=== PATIENT | female | born 1995 | race African-American/Black ===

== ENCOUNTER 2016-06-10 18:52 | Emergency (ER) | payer OTHER ==
[2016-06-10] MEDS ORDERED: ACETAMINOPHEN 325 MG TAB As Ordered ONE (21:11)
[2016-06-10 21:21] LABS: BASO % 0.5 % (0.0-1.0); EOS # 0.2 K/mm3 (0.0-0.50); EOS % 1.6 % (0.0-3.0); LARGE UNSTAINED CELL # 0.2 K/mm3 (0.0-0.4); LYMPH # 2.2 K/mm3 (1.5-6.5); LYMPH % 23.4 % (24.0-44.0); MEAN CORPUSCULAR HEMOGLOBIN 31.7 pg (27.0-33.0); MEAN CORPUSCULAR HGB CONC 33.7 g/dl (32.0-36.5); MEAN CORPUSCULAR VOLUME 93.9 fl (80.0-96.0); MONO # 0.4 K/mm3 (0.0-0.8); MONO % 4.6 % (0.0-5.0); NEUTROPHILS # 6.4 K/mm3 (1.8-7.7); PLATELET COUNT, AUTOMATED 181 k/mm3 (150-450); RED CELL DISTRIBUTION WIDTH 11.5 % (11.5-14.5); WHITE BLOOD COUNT 9.4 K/mm3 (4.0-10.0)
[2016-06-10 21:47] LABS: ALBUMIN 3.8 GM/DL (3.2-5.2); ALBUMIN/GLOBULIN RATIO 0.95 (1.00-1.93); ALKALINE PHOSPHATASE 87 U/L (45-117); ALT/SGPT 20 U/L (12-78); ANION GAP 9 MEQ/L (8-16); AST/SGOT 19 U/L (15-37); BILIRUBIN,DIRECT < 0.1 MG/DL (0.0-0.2); BILIRUBIN,TOTAL 0.4 MG/DL (0.2-1.0); BLOOD UREA NITROGEN 8 MG/DL (7-18); CALCIUM LEVEL 9.1 MG/DL (8.5-10.1); CARBON DIOXIDE LEVEL 26 MEQ/L (21-32); CHLORIDE LEVEL 105 MEQ/L (98-107); CREATININE FOR GFR 0.88 MG/DL (0.55-1.02); GLOMERULAR FILTRATION RATE > 60.0 (>60); GLUCOSE, FASTING 90 MG/DL (70-105); SODIUM LEVEL 140 MEQ/L (136-145); TOTAL PROTEIN 7.8 GM/DL (6.4-8.2)
[2016-06-10] MEDS ORDERED: ISOVUE-370 76% 100ML VIAL (Q9967) As Ordered ONE (22:00)
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
--- NOTE | 2016-06-10 23:00 | REPUSA ---
CLINICAL STATEMENT: Trauma TECHNIQUE: CT chest abdomen pelvis was performed after intravenous contrast administration. Post imag ing 3-D technique employed to obtain multiplanar reformats in coronal and sagittal projections. COMPARISON: None FINDINGS: CHEST: LOWER NECK: The visualized portions of the thyroid gland are unremarkable. No lower cervical lymphade nopathy is identified. LYMPH NODES: No axillary, mediastinal or hilar lymphadenopathy is identified. MEDIASTINUM: No mediastinal mass is seen. The heart is normal in size. No aneurysmal dilatation of th e thoracic aorta is seen. PLEURA/PERICARDIUM: No pericardial or pleural effusion is seen. No pericardial or pleural based mass is identified. LUNGS/AIRWAYS: No acute infiltrate, effusion, or pneumothorax. ABDOMEN/PELVIS: LIVER: The liver is normal in size and contour. No hepatic lesion is seen. The portal and hepatic vei ns are patent. BILIARY SYSTEM: No intrahepatic biliary ductal dilatation is seen. The common duct is normal in calib er. The gallbladder is unremarkable with no focal or diffuse wall thickening seen. No pericholecystic fluid is seen. No calcified biliary calculi are identified. PANCREAS: The pancreas is normal in size, contour and density. No solid or cystic pancreatic mass is seen. No pancreatic duct dilatation is seen. SPLEEN: The spleen is normal in size and without focal lesion. ADRENALS: The adrenal glands are unremarkable. KIDNEYS/URETERS: The kidneys are normal in size and enhance normally. No calcified renal or ureteral calculi are seen. No suspicious renal mass or hydronephrosis is seen. The ureters are not dilated. URINARY BLADDER: The urinary bladder is unremarkable without calcified stone, wall thickening or dive rticula seen. UTERUS/ADNEXA: The uterus and adnexa are unremarkable. AORTA AND ILIAC ARTERIES: No aneurysmal dilatation of the aorta or iliac arteries is seen. LYMPH NODES: No abdominal or pelvic lymphadenopathy is identified. GASTROINTESTINAL: The bowel is normal in caliber. No foci of small or large bowel wall thickening are seen. PERITONEUM: No abdominal or pelvic ascites is seen. No peritoneal mass is seen. ABDOMINAL/PELVIC WALL: No hernia is identified. OSSEOUS STRUCTURES: No aggressive osseous lesion is seen. IMPRESSION: No acute thoracic or abdominal pelvic injury.
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
== END 2016-06-10 23:21 | disposition home or self-care (01) ==
LOC: M ED 18:52
DX: S30.1XXA Contusion of abdominal wall, initial encounter (principal); S20.211A Contusion of right front wall of thorax, initial encounter; V43.62XA Car passenger injured in collision with other type car in traffic accident, initial encounter; Y92.410 Unspecified street and highway as the place of occurrence of the external cause; Y93.89 Activity, other specified; Y99.8 Other external cause status; Z79.3 Long term (current) use of hormonal contraceptives
CPT/HCPCS: 36415; 71260; 74177; 80048; 80076; 81001; 81025; 85025; 99284; Q9967

== ENCOUNTER 2016-10-21 22:19 | Emergency (ER) | payer OTHER ==
[~2016-10-21] VITALS: Ht 162.6 cm; Wt 72.6 kg
[2016-10-21 22:19] VITALS: BP 131/89
[2016-10-21] MEDS ORDERED: birth control PO (22:27)
== END 2016-10-21 23:05 | disposition left against medical advice (07) ==
LOC: M ED 23:04
DX: R11.2 Nausea with vomiting, unspecified (principal); R19.7 Diarrhea, unspecified; Z53.21 Procedure and treatment not carried out due to patient leaving prior to being seen by health care provider

== ENCOUNTER 2016-12-31 07:02 | Emergency (ER) | payer OTHER ==
[~2016-12-31] VITALS: Ht 162.6 cm; Wt 75.0 kg
[~2016-12-31 07:02] MED LIST: birth control PO
[2016-12-31 07:06] VITALS: BP 118/80
[2016-12-31] MEDS ORDERED: bcp ID (07:09)
[2016-12-31] MEDS ORDERED: MAGICMW SSP (07:38)
== END 2016-12-31 07:57 | disposition home or self-care (01) ==
LOC: M ED 07:02
DX: J02.9 Acute pharyngitis, unspecified (principal)

== ENCOUNTER 2018-02-05 12:20 | Emergency (ER) | payer OTHER ==
[2018-02-05 12:55] LABS: BASO % 0.4 % (0.0-1.0); EOS # 0.1 10^3/uL (0.0-0.50); EOS % 0.9 % (0.0-3.0); HEMATOCRIT 41.3 % (36.0-47.0); HEMOGLOBIN 14.3 g/dl (12.0-15.5); IMMATURE GRANULOCYTE % 0.3 % (0-3.0); LYMPH # 1.7 10^3/uL (1.5-6.5); LYMPH % 22.4 % (24.0-44.0); MEAN CORPUSCULAR HEMOGLOBIN 32.1 pg (27.0-33.0); MEAN CORPUSCULAR HGB CONC 34.6 g/dl (32.0-36.5); MEAN CORPUSCULAR VOLUME 92.8 fl (80.0-96.0); MONO # 0.6 10^3/uL (0.0-0.8); MONO % 8.1 % (0.0-5.0); NEUTROPHILS # 5.2 10^3/uL (1.8-7.7); NEUTROPHILS % 67.9 % (36.0-66.0); PLATELET COUNT, AUTOMATED 168 10^3/uL (150-450); RED BLOOD COUNT 4.45 10^6/uL (4.00-5.40); RED CELL DISTRIBUTION WIDTH 11.5 % (11.5-14.5); WHITE BLOOD COUNT 7.6 10^3/uL (4.0-10.0)
[2018-02-05 13:08] LABS: CONTROL LINE HCG INT CTR LINE PRESENT; HCG, SERUM QUALITATIVE NEGATIVE (NEGATIVE)
[2018-02-05 13:12] LABS: ANION GAP 5 MEQ/L (8-16); BLOOD UREA NITROGEN 9 MG/DL (7-18); CALCIUM LEVEL 9.2 MG/DL (8.5-10.1); CARBON DIOXIDE LEVEL 28 MEQ/L (21-32); CHLORIDE LEVEL 108 MEQ/L (98-107); CREATININE FOR GFR 1.04 MG/DL (0.55-1.30); GLOMERULAR FILTRATION RATE > 60.0 (>60); GLUCOSE, FASTING 80 MG/DL (70-100); POTASSIUM SERUM 4.3 MEQ/L (3.5-5.1); SODIUM LEVEL 141 MEQ/L (136-145)
[2018-02-05 13:24] LABS: KETONE, URINE AUTO RFX NEGATIVE (NEGATIVE); MUCUS, URINE RFX SMALL (NEGATIVE); NITRITE, URINE AUTO RFX NEGATIVE (NEGATIVE); RBC, URINE AUTO RFX 40 /HPF (0-3); SPECIFIC GRAVITY UR AUTO RFX 1.013 (1.002-1.035); SQUAM EPITHELIAL CELL UR AURFX 1 /HPF (0-6)
[2018-02-05 13:29] LABS: LEUKOCYTE ESTERASE UR AUTO RFX 3+ (NEGATIVE); WBC, URINE AUTO RFX 111 /HPF (0-3)
[2018-02-05] MEDS: KETOROLAC TROMETHAMINE 10 MG TAB PO (15:45)
== END 2018-02-05 17:07 | disposition home or self-care (01) ==
LOC: M ED 12:20
DX: N39.0 Urinary tract infection, site not specified (principal); N83.01 Follicular cyst of right ovary; Z87.42 Personal history of other diseases of the female genital tract; Z72.0 Tobacco use
CPT/HCPCS: 76856

== ENCOUNTER 2018-12-07 06:28 | Emergency (ER) | payer OTHER ==
[~2018-12-07] VITALS: Ht 162.6 cm; Wt 80.9 kg
[~2018-12-07 06:28] MED LIST changes: +BACT800T5 PO; +HYDR-3715 PO; +MAGICMW SSP; +bcp ID
[2018-12-07] MEDS ORDERED: NAPR-837 PO (08:05)
[2018-12-07 08:28] VITALS: BP 121/84
== END 2018-12-07 08:29 | disposition home or self-care (01) ==
LOC: M ED 06:28
DX: R59.0 Localized enlarged lymph nodes (principal); M62.838 Other muscle spasm